=== PATIENT | male | born 1970 | race Caucasian/White ===

== ENCOUNTER 2016-05-10 15:13 | Inpatient (IN) | payer MEDICARE, MEDICAID ==
[2016-05-10] VITALS (8 sets, daily range): BP systolic 133–177; BP diastolic 87–101; PULSE 102–120; RESP 17–22; O2SAT 98–100
[~2016-05-10] VITALS: Ht 179.1 cm; Wt 113.0 kg
[~2016-05-10 15:13] MED LIST: BENZ0.5T3 PO; BUPR150T12 PO; DOXY100T2 PO; FLUO10CA20 PO; FLUO20CA25 PO; GABA-502 PO; LORA1TAB PO; LURA40TA3 PO; TRAZ-118 PO; ZLP10T PO
[2016-05-10] MEDS ORDERED: 0.9% Sodium Chloride 1,000 ML IV ONE (16:22)
[2016-05-10] MEDS ORDERED: Ondansetron 2 mg/mL 2 mL Inj IVPUSH ONE (16:25)
[2016-05-10] MEDS ORDERED: Thiamine Inj 100 MG, Folic Acid Inj 1 MG, Magnesium Sulfate 50% Inj 2 GM, Multivitamins... IV ONE ×15 (16:25→21:35)
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
[2016-05-10 16:40] LABS: BASOPHILS % (AUTO) 0 % (0-3); EOSINOPHILS % (AUTO) 0 % (0-5); MONOCYTES % (AUTO) 16.1 % (4-12); Mean Corpuscular Hemoglobin 31.2 pg (27.0-35.0); Mean Corpuscular Volume 91.4 fL (81-100); NEUTROPHILS % (AUTO) 75.9 % (40-74); Platelet Count 104 bil/L (150-400)
[2016-05-10 16:44] LABS: INR 1.07 ratio
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
[2016-05-10 17:13] LABS: Magnesium 1.2 mg/dL (1.6-2.6)
[2016-05-10] MEDS ORDERED: Magnesium Sulf 2 Gm/50mL Water 2 GM in IV Premix 1 EACH IV ONE (17:30)
--- NOTE | 2016-05-10 17:36 | ABG ---
DateTimeAnalyzed 17:30:00 -_ pH ____7.557 - 7.350 7.450 pCO2 ___27.1__ -mmHg 35.0 45.0 pO2 104 -mmHg 69.0 116 HCO3- ___24.0__ -mmol/L 22.0 26.0 ABE ____2.7__ -mmol/L -2.0 2.0 tHb ___11.4__ -g/dL O2Hb ___95.9__ -% COHb ____1.8__ -% MetHb ____0.9__ -% sO2 ___98.6__ -% 25.0 FIO2 ___21.0__ -% Drawn By NB - Date/Time Notified____ 17:35:00 -_ Notified By NB - Notified Whom ___OKELLY - B 756 -mmHg tO2 ___15.5__ -Vol% Duarte test N/A -
[2016-05-10 18:15] LABS: APPEARANCE,URINE CLEAR (CLEAR,HAZY); COLOR,URINE YELLOW (YELLOW); OCCULT BLOOD,URINE NEGATIVE (NEGATIVE); UROBILINOGEN,URINE NORMAL (NORMAL)
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
[2016-05-10] MEDS: 0.9% Sodium Chloride 1,000 ML IV SCH ×3 (19:45→23:05)
[2016-05-10] MEDS ORDERED: Alum-Mag Hydrox-Simeth 30 mL Suspension PO PRN (21:35)
[2016-05-10] MEDS ORDERED: Polyethylene Glycol (PEG) 17 Gm Powder PO PRN (21:35)
[2016-05-10] MEDS ORDERED: Ondansetron 2 mg/mL 2 mL Inj IVPUSH PRN (21:35)
[2016-05-10] MEDS ORDERED: oxyCODONE-Acetamin 5-325 mg Tablet PO ONE (21:50)
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
[2016-05-11] VITALS (7 sets, daily range): BP systolic 120–130; BP diastolic 75–88; PULSE 77–99; RESP 16–20; O2SAT 97–99
[2016-05-11] MEDS: 0.9% Sodium Chloride 1,000 ML IV SCH ×3 (00:11→18:08)
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
--- NOTE | 2016-05-11 04:54 | NUR ---
CIWA: Pt has scored 14 throughout the night for CIWA protocol; Valium being administered. Pt c/o generalized pain, mostly in L knee, medication administered; effective. Denies SOB and chest pain. Pt slept off/on during the night, pleasant and cooperative with care.
--- NOTE | 2016-05-11 07:22 | NUR ---
Home Medications: Pt was not able to give complete home medication list; passed to dayshift to complete. Pt has not had any medications for several days.
[2016-05-11] MEDS: Multivit-Miner-Folic Acid-Iron Tablet PO SCH (08:16)
[2016-05-11] MEDS ORDERED: Influenza (Adult) Vaccine 0.5 mL Syringe IM ONE (08:30)
[2016-05-11] MEDS ORDERED: RISP4TAB2 PO (11:01)
[2016-05-11] MEDS ORDERED: CITA40TA PO (11:01)
--- NOTE | 2016-05-11 15:46 | NUR ---
Social Work-attempted assessment: Data:EMR reviewed. Pt is a 45 y/o male who was admitted on 05/10/16 for ETOH withdrawal per H&P. Pt's insurance is [facility] and PCP is Toan Liu MD. EMR reviewed. SW attempted to see pt, pt sleeping soundly. SW to follow up tomorrow to complete CD assessment and assessment. SW will continue to follow. Assessment:Pt who is independent at baseline. Plan:SW to follow up with CD assessment and assessment when appropriate. SW will continue to follow. JAYDON Cardenas
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
[2016-05-11] MEDS: buPROPion SR 150 mg ER12 Tablet PO SCH (18:07)
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
[2016-05-12] VITALS (8 sets, daily range): BP systolic 88–130; BP diastolic 53–82; PULSE 82–100; RESP 16–28; O2SAT 95–99
[2016-05-12] MEDS: 0.9% Sodium Chloride 1,000 ML IV SCH ×3 (03:48→23:22)
--- NOTE | 2016-05-12 05:58 | NUR ---
CIWA/Dressing CIWA , 11 and 14 , gave 10 Mg IV Diazepam x2 , Pain , gave 5 Mg Oxy x 2 , Insomnia , Trazodone 100 x1. Pt had dressing on rt buttocks saturated , removed dressing and re-dressed. slight confused but usually appropriate, , Room Air , NS @ 100, Tele SR 76
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
[2016-05-12 09:58] LABS: BASOPHILS % (AUTO) 0.3 % (0-3); EOSINOPHILS % (AUTO) 0.8 % (0-5); MONOCYTES % (AUTO) 13.2 % (4-12); Mean Corpuscular Hemoglobin 31.8 pg (27.0-35.0); Mean Corpuscular Volume 96.8 fL (81-100); NEUTROPHILS % (AUTO) 72.2 % (40-74); Platelet Count 106 bil/L (150-400)
[2016-05-12] MEDS: Lidocaine Topical 5% Patch TOPICAL SCH (09:59)
[2016-05-12] MEDS: Heparin 5,000 Unit/mL Inj SUBQ SCH ×2 (10:52→17:47)
[2016-05-12] MEDS: risperiDONE 2 mg Tablet PO SCH (10:53)
[2016-05-12] MEDS: buPROPion SR 150 mg ER12 Tablet PO SCH (10:54)
[2016-05-12] MEDS: Multivit-Miner-Folic Acid-Iron Tablet PO SCH (10:55)
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
--- NOTE | 2016-05-12 15:30 | NUR ---
Dressing Change Changed patients dressing on his Right leg and Right buttock. Applied layer of Silvadene to all open wounds, applied adaptic, kerlix, then wrapped with singh bandage from thigh to lower leg. Pt has 4 wounds on right leg ranging in different sizes. Wounds are pink with some serous drainage. Pt Right buttock was also changed with Silvadene, adaptic, abdominal pad, and taped. Wound is almost entire right buttock, pink with drainage. Pt tolerated procedure well. Continue to monitor and use CIWA protocol as needed. Dressings to be changed daily per wound team. Pt in bed, resting, with call light at bedside, low position.
--- NOTE | 2016-05-12 17:37 | NUR ---
Wound care Pt seen at bedside for wound care this AM, dressings removed at right leg and buttock. Residual blisters were evacuated of fluid with an 11 blade, pt unable to tolerate debridement of slough from wounds/burroughs today. Wounds are mostly superficial 2nd degree with a few areas at buttock and lateral leg that would be considered deep 2nd degree. Recommend Silvadene to all burroughs daily, cover with gauze and wrap, also recommend daily shower at dressing change so patient can scrub silvadene off prior to application of fresh. Will recheck on wound progress 05/14/16.
[2016-05-13] VITALS (8 sets, daily range): BP systolic 101–162; BP diastolic 65–89; PULSE 77–121; RESP 18–20; O2SAT 96–99
[2016-05-13] MEDS: Heparin 5,000 Unit/mL Inj SUBQ SCH ×4 (00:39→23:30)
--- NOTE | 2016-05-13 04:59 | NUR ---
DRESSING CHANGE TO RIGHT BUTTOCK Pts dressing to right buttock saturated. Bed pad and pajama bottoms changed. Old dressing to right buttock removed. Yellow drainage on old dressing. Wound lightly cleansed w/ saline, layer of Silvadene placed on wound, vaseline gauze, then ABD pad, secured w/ paper tape. Pt tolerated procedure fairly well. Continue to monitor.
--- NOTE | 2016-05-13 05:02 | NUR ---
CIWA/PT ACTIVITY Pt has scored 7-12 on CIWA scale. Pt has been given Valium 5mg IV x 2 during shift. Pt has tremors, intermittent nausea, restless at times, continues to have auditory hallucinations. Pt states by "having the TV on, it drowns out some of the hallucinations." Pt has been up a few times to BR and to reposition. Pt generally weak, pt is very unsteady on feet. SBA to 1 person assist w/ activity. Continue to monitor. Call light in reach. Bed alarm on. Intentional rounding.
[2016-05-13 06:06] LABS: BASOPHILS % (AUTO) 0.3 % (0-3); EOSINOPHILS % (AUTO) 0.5 % (0-5); MONOCYTES % (AUTO) 18.6 % (4-12); Mean Corpuscular Volume 99.3 fL (81-100); NEUTROPHILS % (AUTO) 58.7 % (40-74); Platelet Count 127 bil/L (150-400)
[2016-05-13] MEDS ORDERED: Potassium Chloride 20 mEq SR Tablet PO ONE (07:45)
[2016-05-13] MEDS: Lidocaine Topical 5% Patch TOPICAL SCH (08:30)
[2016-05-13] MEDS: Multivit-Miner-Folic Acid-Iron Tablet PO SCH (08:39)
[2016-05-13] MEDS: risperiDONE 2 mg Tablet PO SCH (08:41)
[2016-05-13] MEDS: buPROPion SR 150 mg ER12 Tablet PO SCH (08:42)
[2016-05-13] MEDS ORDERED: Calcium GLUCO 10% (Gm) 1 Gm/10 mL 50 mL Inj IV ONE (08:45)
[2016-05-13] MEDS: 0.9% Sodium Chloride 1,000 ML IV SCH ×2 (08:48→21:36)
[2016-05-13] MEDS ORDERED: Calcium GLUCOnate 10% 1 Gm/50 mL NS IV ONE ×2 (09:00)
[2016-05-13] MEDS ORDERED: Potassium Chloride 20 mEq SR Tablet PO SCH (12:00)
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
--- NOTE | 2016-05-13 16:07 | NUR ---
Evaluation completed. Please go to "Notes" then click on "Assessments and Notes" (bottom left corner of screen). Then select appropriate discipline tab on top of screen.
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
--- NOTE | 2016-05-13 19:14 | NUR ---
Skin Amado on leg and buttock Showered, dressed with silvadine, vasaline gauze, kerlix and abd on leg, with abd and tape on buttock Daily changes ordered for nursing by WC
[2016-05-14 00:50] VITALS: BP 140/91; PULSE 83; RESP 18; O2SAT 96
[2016-05-14 04:04] VITALS: BP 118/76; PULSE 113; RESP 20; O2SAT 96
[2016-05-14 06:03] LABS: BASOPHILS % (AUTO) 0.2 % (0-3); EOSINOPHILS % (AUTO) 0.5 % (0-5); MONOCYTES % (AUTO) 20.1 % (4-12); Mean Corpuscular Hemoglobin 31.2 pg (27.0-35.0); Mean Corpuscular Volume 97.5 fL (81-100); NEUTROPHILS % (AUTO) 61.4 % (40-74); Platelet Count 155 bil/L (150-400)
[2016-05-14 06:07] VITALS: PULSE 91
[2016-05-14] MEDS: 0.9% Sodium Chloride 1,000 ML IV SCH ×2 (07:58→17:33)
[2016-05-14 08:00] VITALS: PULSE 108
[2016-05-14] MEDS: Multivit-Miner-Folic Acid-Iron Tablet PO SCH (08:01)
[2016-05-14] MEDS: risperiDONE 2 mg Tablet PO SCH (08:01)
[2016-05-14] MEDS: buPROPion SR 150 mg ER12 Tablet PO SCH (08:01)
[2016-05-14] MEDS: Heparin 5,000 Unit/mL Inj SUBQ SCH ×3 (08:03→23:43)
[2016-05-14] MEDS: Lidocaine Topical 5% Patch TOPICAL SCH (08:06)
[2016-05-14] MEDS ORDERED: Potassium Chloride 20 mEq SR Tablet PO ONE ×2 (10:05→17:35)
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
[2016-05-14 10:46] VITALS: BP 116/74; PULSE 83; RESP 22; O2SAT 96
[2016-05-14 17:15] LABS: Magnesium 1.4 mg/dL (1.6-2.6)
[2016-05-14] MEDS ORDERED: Magnesium Sulf 4 Gm/100 mL H2O 4 GM in IV Premix 1 EACH IV ONE (17:35)
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
--- NOTE | 2016-05-14 19:09 | NUR ---
mentation Pt has been having visual and auditory hallucinations stating that his friend Herbert is in the room and talking to him through television remote/speaker. Pt stated that he has been seeing Herbert for a long time and it is not from ETOH withdrawals and are more so related to his schizophrenia. Hand tremors are not baseline for him. Pt has been impulsive and wanting to ambulate but is physically unable to. Pt has been cooperative with care and often needs redirection.
[2016-05-14 19:54] VITALS: BP 130/79; PULSE 79; RESP 20; O2SAT 96
[2016-05-15] VITALS (8 sets, daily range): BP systolic 122–137; BP diastolic 61–85; PULSE 62–97; RESP 20–22; O2SAT 90–97
--- NOTE | 2016-05-15 04:25 | NUR ---
CIWA / Wound Care Ongoing CIWA protocol with scores of 14 and 19 this shift, respectively; 10mg IVP Valium administered x2. Pt significantly tremulous and diaphoretic, mildly disoriented to place and time but able to converse coherently with staff and participate in care. Pt reports continual pain to RLE and L knee; 5mg oxycodone administered x1 this shift. Pt able to rest throughout shift. [place] with [place] [facility] [place] tolerates poorly d/t pain and weakness, but able to stand and pivot. R buttock dressing and R lateral leg dressing changed this shift. VSS. Tele SR 70s-80s.
[2016-05-15] MEDS: 0.9% Sodium Chloride 1,000 ML IV SCH ×2 (04:39→14:35)
[2016-05-15 05:50] LABS: BASOPHILS % (AUTO) 0.3 % (0-3); MONOCYTES % (AUTO) 16.2 % (4-12); Mean Corpuscular Volume 98.7 fL (81-100); NEUTROPHILS % (AUTO) 66.3 % (40-74); Platelet Count 198 bil/L (150-400)
[2016-05-15 06:12] LABS: Magnesium 1.9 mg/dL (1.6-2.6)
[2016-05-15] MEDS ORDERED: Magnesium Chloride SR 64 mg ER24 Tablet PO ONE (07:25)
[2016-05-15] MEDS: Lidocaine Topical 5% Patch TOPICAL SCH (08:30)
[2016-05-15] MEDS: Potassium Chloride 20 mEq SR Tablet PO SCH ×2 (09:39→19:54)
[2016-05-15] MEDS: Multivit-Miner-Folic Acid-Iron Tablet PO SCH (09:42)
[2016-05-15] MEDS: buPROPion SR 150 mg ER12 Tablet PO SCH (09:43)
[2016-05-15] MEDS: risperiDONE 2 mg Tablet PO SCH (09:43)
[2016-05-15] MEDS: Heparin 5,000 Unit/mL Inj SUBQ SCH ×2 (09:51→18:14)
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
[2016-05-15] MEDS ORDERED: Lactulose 20 Gm/30 mL 30 mL Syrup PO ONE (15:15)
[2016-05-16] VITALS (9 sets, daily range): BP systolic 117–152; BP diastolic 68–95; PULSE 74–105; RESP 20; O2SAT 94–98
[2016-05-16] MEDS: 0.9% Sodium Chloride 1,000 ML IV SCH ×3 (00:52→13:33)
[2016-05-16] MEDS: Heparin 5,000 Unit/mL Inj SUBQ SCH ×3 (01:08→17:04)
--- NOTE | 2016-05-16 02:49 | NUR ---
Ambulation / CIWA / Pain able to ambulate to bathroom 1-2pa, gait belt, fww. Balance deficit apparent and several times leaning over with no balance compensation from legs with knees locked. Strong decent to toilet and able to walk back to bed with more ease. Will pass on to dayshift to encourage ambulation. CIWA scores <10 as all auditory/visual hallucinations are baseline symptom of chronic schizophrenia. Pain always 10/10 before/after pain medication administration. FELDT score is 0/10 and behavior is quite calm and peaceful while eating/resting in bed.
[2016-05-16 06:07] LABS: BASOPHILS % (AUTO) 0.5 % (0-3); EOSINOPHILS % (AUTO) 1.2 % (0-5); MONOCYTES % (AUTO) 22.7 % (4-12); Mean Corpuscular Hemoglobin 32.5 pg (27.0-35.0); NEUTROPHILS % (AUTO) 54.2 % (40-74); Platelet Count 264 bil/L (150-400)
[2016-05-16] MEDS: Multivit-Miner-Folic Acid-Iron Tablet PO SCH (07:46)
[2016-05-16] MEDS: buPROPion SR 150 mg ER12 Tablet PO SCH (07:46)
[2016-05-16] MEDS: Potassium Chloride 20 mEq SR Tablet PO SCH (07:46)
[2016-05-16] MEDS: risperiDONE 2 mg Tablet PO SCH (07:46)
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
--- NOTE | 2016-05-16 09:09 | NUR ---
Social Work: Continued d/c planning Data: Pt is on day 6 of hospitalization. NAPRAPATH met with pt at bedside regarding d/c plan. NAPRAPATH asked if pt has talked with his parents about going to either of their homes at d/c. Pt states he has not. NAPRAPATH strongly encouraged pt to call both of his parents this morning and ask if they can be available to crop picker pt at d/c and if he can stay with them for a while. NAPRAPATH also stated that if staying with his parents at d/c are not an options that he needs to get creative and think outside of the box and call others that he may be able to stay with for a time. Pt states he will call them. NAPRAPATH will follow up with pt about plan either later today or tomorrow morning. Assessment: Pt who is independent at baseline, alcohol abuse. Plan: Pt will call parents to see if he can stay at either of their homes at d/c. NAPRAPATH will follow up with pt regarding plan and transportation at d/c. JAYDON Knott
--- NOTE | 2016-05-16 09:09 | NUR ---
[facility] signed Verbal consent to sign at 8:30am. JAYDON Knott
[2016-05-16] MEDS: Lidocaine Topical 5% Patch TOPICAL SCH (10:03)
--- NOTE | 2016-05-16 16:41 | NUR ---
Social Work: Continued d/c planning Data: PATIENT REGISTRATION SUPERVISOR met with pt again this afternoon to follow up with him if he called his parents. Pt states he has not because he does not know their phone numbers. PATIENT REGISTRATION SUPERVISOR asked how he plans to get ahold of them. Pt states that he does not think his dad will take him back but his mom might and that he could call his girlfriend to see if she will find his mom's phone number for him. PATIENT REGISTRATION SUPERVISOR asked if they could call his girlfriend together, pt agreeable. PATIENT REGISTRATION SUPERVISOR asked [facility] to call pt's girlfriends out of area phone number and forward it to pt's room. Pt answered the phone while PATIENT REGISTRATION SUPERVISOR was in the room. PATIENT REGISTRATION SUPERVISOR left and came back about 45 minutes later to follow up on what pt determined with his girlfriend. Pt still on the phone. PATIENT REGISTRATION SUPERVISOR will follow up 05/17 regarding pt's d/c plan. PATIENT REGISTRATION SUPERVISOR will continue to follow. Assessment: Pt who is independent at baseline. Plan: PATIENT REGISTRATION SUPERVISOR will follow up with pt regarding d/c plan and if his mother states she can take him at d/c. If this is not an option for pt, he will need to consider other options. PATIENT REGISTRATION SUPERVISOR will continue to follow. JAYDNO Knott
--- NOTE | 2016-05-16 18:19 | NUR ---
CIWA and Activity CIWA 6. Pt. has persistent auditory hallucination which he explained is chronic for him. He walked in the hallway with PT in the morning. He walked again in the hallway in the afternoon. He walked 150' with SBA, he used a FWW for balance and stability.
[2016-05-17] MEDS: Heparin 5,000 Unit/mL Inj SUBQ SCH ×2 (00:06→08:50)
[2016-05-17 01:29] VITALS: BP 145/88; PULSE 90; RESP 20; O2SAT 98
[2016-05-17 05:50] LABS: BASOPHILS % (AUTO) 0.4 % (0-3); EOSINOPHILS % (AUTO) 1.2 % (0-5); MONOCYTES % (AUTO) 24.9 % (4-12); Mean Corpuscular Hemoglobin 30.7 pg (27.0-35.0); NEUTROPHILS % (AUTO) 52.5 % (40-74); Platelet Count 342 bil/L (150-400)
[2016-05-17 06:16] VITALS: BP 139/95; PULSE 79; RESP 16; O2SAT 98
--- NOTE | 2016-05-17 06:37 | NUR ---
CIWA CIWA score remained under 5 for the evening. No complaints of discomfort or pain, no noted tremors or s/s of ETOH withdraw. Pt pleasant and cooperative with all cares. Left room with call light at bedside, will continue to monitor.
[2016-05-17] MEDS ORDERED: Potassium Chloride 20 mEq SR Tablet PO SCH (08:30)
[2016-05-17] MEDS: Multivit-Miner-Folic Acid-Iron Tablet PO SCH (08:49)
[2016-05-17] MEDS: Lidocaine Topical 5% Patch TOPICAL SCH (08:49)
[2016-05-17] MEDS: risperiDONE 2 mg Tablet PO SCH (08:49)
[2016-05-17] MEDS: buPROPion SR 150 mg ER12 Tablet PO SCH (08:49)
[2016-05-17 09:33] VITALS: BP 129/81; PULSE 76; RESP 17; O2SAT 97
[2016-05-17] MEDS ORDERED: OXYC5TAB72 PO (11:30)
[2016-05-17] MEDS ORDERED: SILV400C TOPICAL (11:30)
[2016-05-17] MEDS ORDERED: POTA20TA16 PO (11:38)
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
--- NOTE | 2016-05-17 13:01 | NUR ---
Social Work-discharge: Data& assessment:EMR Reviewed. Pt is on day 7 of hospitalization for etoh withdrawal. Pt is medically stable to discharge today. PT is currently recommending SNF, but pt ambulating 75 ft. SW followed up with pt at bedside, SW role explained. Pt declining SNF, states he had a good conversation with mom yesterday and is able to go home with her. Pt requested that SW call his mom Mary Beth [phone], SW attempted to reach her, phone number busy. Pt states he is feeling good today, plans on following up with with outpt CD and mental health resources that have been provided to pt. Pt's family to provide transport home today. No other discharge needs identified. All updated and agreeable to plan. Plan:Pt to discharge home with his mother today via POV. CD and mental health resources have been provided. No other discharge needs identified. All updated and agreeable to plan. JAYDON Cardenas
--- NOTE | 2016-05-17 13:22 | NUR ---
Discharge Patient discharge to home with all belongings at 1304. Explained to patient new medications (oxycodone, potassium chloride and silver sulfadiazine), when next medications are due and discharge instructions. Patient verbalized understanding. Dc'd IV intact. Dc'd telemetry. Vitals stable. Patient left floor via wheelchair accompanied by TAXI DRIVER SUPERVISOR with no signs of distress.
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
== END 2016-05-17 13:04 | disposition home or self-care (01) | DRG 897 ==
LOC: SED 15:13 → EDBD 15:13 → MPC 22:12
PROVIDERS: ADMIT Hospitalist; ATTEND Hospitalist
PROC: 4A033R1 Measurement of Arterial Saturation, Peripheral, Percutaneous Approach (ICD-10-PCS; principal; 2016-05-10)
DX: F10.239 Alcohol dependence with withdrawal, unspecified (principal); F20.0 Paranoid schizophrenia; T24.201A Burn of second degree of unspecified site of right lower limb, except ankle and foot, initial encounter; Z98.84 Bariatric surgery status; Z59.0 Homelessness; F32.9 Major depressive disorder, single episode, unspecified; E66.01 Morbid (severe) obesity due to excess calories; Z68.35 Body mass index [BMI] 35.0-35.9, adult; E83.42 Hypomagnesemia; E87.6 Hypokalemia

== ENCOUNTER 2016-07-11 09:26 | Emergency (ER) | payer MEDICARE, MEDICAID ==
[~2016-07-11] VITALS: Ht 177.8 cm; Wt 99.1 kg
[~2016-07-11 09:26] MED LIST changes: +CITA40TA PO; -DOXY100T2 PO; -LORA1TAB PO; +OXYC5TAB72 PO; +POTA20TA16 PO; +RISP4TAB2 PO; +SILV400C TOPICAL; -ZLP10T PO
[2016-07-11 09:36] VITALS: BP 148/76; PULSE 104; RESP 18; O2SAT 96
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
[2016-07-11] MEDS ORDERED: LORazepam 2 mg Tablet PO ONE (09:50)
[2016-07-11] MEDS ORDERED: 0.9% Sodium Chloride 1,000 ML IV ONE (09:50)
[2016-07-11 10:11] LABS: BASOPHILS % (AUTO) 0.3 % (0-3); EOSINOPHILS % (AUTO) 1.5 % (0-5); MONOCYTES % (AUTO) 14.7 % (4-12); Mean Corpuscular Hemoglobin 30.7 pg (27.0-35.0); Mean Corpuscular Volume 97.7 fL (81-100); NEUTROPHILS % (AUTO) 58.2 % (40-74); Platelet Count 219 bil/L (150-400)
[2016-07-11] MEDS ORDERED: LORA-303 PO (10:46)
[2016-07-11 11:24] VITALS: BP 144/75; PULSE 94; RESP 18; O2SAT 97
== END 2016-07-11 11:25 | disposition home or self-care (01) ==
LOC: SED 09:26
DX: R56.9 Unspecified convulsions (principal); F31.9 Bipolar disorder, unspecified; F20.9 Schizophrenia, unspecified; F17.200 Nicotine dependence, unspecified, uncomplicated

== ENCOUNTER 2016-09-28 14:02 | Emergency (ER) | payer MEDICARE ==
[~2016-09-28] VITALS: Ht 180.3 cm; Wt 109.1 kg
[2016-09-28 14:02] VITALS: BP 142/90; PULSE 135; RESP 16; O2SAT 96
[~2016-09-28 14:02] MED LIST changes: +LORA-303 PO
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
--- NOTE | 2016-09-28 15:46 | DRSVH ---
PROCEDURE: CT BRAIN WITHOUT CONTRAST ([id number]) INDICATIONS: intoxicated frontal abrasions, found down TECHNIQUE: Noncontrast 4.5 mm thick angled axial sections acquired from the foramen magnum to the vertex, with c oronal reformats. COMPARISON: [facility], CT, CT BRAIN WO CON, 05/10/2016, 18:40. FINDINGS: Image quality: Diagnostic. Brain: There is no acute intra-axial or extra-axial hemorrhage. No extra-axial fluid collection is i dentified. There is no midline shift or mass effect. The orbits are grossly unremarkable. No large areas of diffusely decreased attenuation are evident within the brain to suggest diffuse cer ebral edema. No definite parenchymal abnormality is identified. However, there are questionable are as of low-attenuation within the periventricular white matter. The ventricles and cortical sulci are more prominent than expected for the patient's age. Mild asymm etric prominence of the right lateral ventricle is unchanged. Bones: Calvarium and visualized facial bones are grossly intact. Moderate mucosal thickening of the left maxillary sinuses more prominent on the current exam. Otherwise, the imaged paranasal sinuses and mastoid air cells are clear. IMPRESSION: 1. Unchanged CT of the head. No acute intracranial hemorrhage. 2. Left maxillary sinus disease. Dictated by: Bola Arrieta M.D. on 09/28/2016 at 14:42 Approved by: Bola Arrieta M.D. on 09/28/2016 at 14:45
[2016-09-28 17:01] VITALS: BP 131/97; PULSE 133; RESP 18; O2SAT 96
[2016-09-28 17:19] VITALS: BP 131/97; PULSE 133; RESP 18; O2SAT 96
== END 2016-09-28 17:20 | disposition home or self-care (01) ==
LOC: SED 14:02
DX: F10.120 Alcohol abuse with intoxication, uncomplicated (principal); F32.9 Major depressive disorder, single episode, unspecified; F41.9 Anxiety disorder, unspecified; F20.9 Schizophrenia, unspecified; F43.10 Post-traumatic stress disorder, unspecified; F31.9 Bipolar disorder, unspecified; F17.200 Nicotine dependence, unspecified, uncomplicated

== ENCOUNTER 2016-09-29 15:31 | Emergency (ER) | payer MEDICARE ==
[~2016-09-29] VITALS: Ht 180.3 cm; Wt 97.3 kg
[2016-09-29 15:42] VITALS: BP 129/75; PULSE 108; RESP 16; O2SAT 100
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
[2016-09-29 16:27] LABS: APPEARANCE,URINE CLEAR (CLEAR,HAZY); COLOR,URINE YELLOW (YELLOW); PH,URINE 5.5 (5.0-8.0)
[2016-09-29 16:28] LABS: OCCULT BLOOD,URINE TRACE (NEGATIVE); UROBILINOGEN,URINE NORMAL (NORMAL)
[2016-09-29 20:12] VITALS: BP 98/48; PULSE 96; RESP 18; O2SAT 94
[2016-09-30 00:31] VITALS: BP 105/65; PULSE 118; RESP 18; O2SAT 98
[2016-09-30 05:09] VITALS: BP 11/59; PULSE 101; RESP 20; O2SAT 99
== END 2016-09-30 06:20 | disposition home or self-care (01) ==
LOC: SED 15:31 → EDBD 15:31 → SED 09-30 06:20
DX: F10.10 Alcohol abuse, uncomplicated (principal); F20.9 Schizophrenia, unspecified; F33.3 Major depressive disorder, recurrent, severe with psychotic symptoms; F43.0 Acute stress reaction; F43.10 Post-traumatic stress disorder, unspecified; F31.9 Bipolar disorder, unspecified; F41.9 Anxiety disorder, unspecified; F17.200 Nicotine dependence, unspecified, uncomplicated; Z59.0 Homelessness

== ENCOUNTER 2016-10-01 11:44 | Emergency (ER) | payer MEDICARE ==
[~2016-10-01] VITALS: Ht 175.3 cm; Wt 10.9 kg
[2016-10-01 11:44] VITALS: BP 142/68; PULSE 106; RESP 15; O2SAT 95
--- NOTE | 2016-10-01 12:47 | ED.REPORT ---
HPI-Overdose/Alcohol Toxicity Date of Service Oct 01, 2016 ED Provider: Chaparro Richmond MD Pt is a 45 year old male with a hx of alcoholism, PTSD and depression presenting to the ED via law enforcement for EtOH intoxication. The authorities were called to pick the pt up from [facility] for intoxication just prior to arrival. He denies any injuries, pain, or symptoms at this time. He states that he is interested in getting help to stop drinking alcohol. Pt currently takes Respirtone and trazodone. He denies any drug use or hx of withdrawal seizures. Nursing Notes Stated Complaint: ETOH Chief Complaint: Substance Abuse Nursing Notes Reviewed: Yes ([employer], [employer] not reconciled) Allergies: Coded Allergies: No Known Allergies (Verified , 10/01/16) Scheduled Bupropion ER (Bupropion ER) 150 Mg Tablet.er 150 MG PO DAILY Citalopram Hydrobromide (Celexa) 40 Mg Tablet 40 MG PO DAILY Fluoxetine (Fluoxetine) 10 Mg Capsule 10 MG PO DAILY Fluoxetine (Fluoxetine) 20 Mg Capsule 20 MG PO DAILY Lorazepam (Ativan) 1 Mg Tablet 1 MG PO DIRECTED 2mg q6hrs x 24hrs, then 1mg q6hrs x 24hrs, then 1mg q8hrs x 24hrs, then 1mg q12hrs x 24hrs, then 1mg Lurasidone (Latuda) 40 Mg Tablet 40 MG PO DAILY Risperidone (Risperidone) 4 Mg Tablet 4 MG PO DAILY Scheduled PRN Benztropine Mesylate (Benztropine Mesylate) 0.5 Mg Tablet 0.5-1 MG PO BID PRN PRN For Anxiety Gabapentin (Gabapentin) 300 Mg Capsule 300 MG PO TID PRN PRN For Pain Trazodone (Trazodone) 100 Mg Tablet 100 MG PO HS PRN PRN For Sleep oxyCODONE (oxyCODONE) 5 Mg Tablet 5 MG PO Q6H PRN PRN For Moderate Pain General Time Seen by Provider: 12:48 Chief Complaint Intoxicated, alcohol Hx Obtained From: Patient, Police Arrived By: Police Onset Occurred: Just prior to arrival Symptom Duration: Since onset Severity: Current: No pain currently Severity: Maximum: No pain Recent Healthcare: No recent hospitalization, Recent doctor visit Similar Sx Previous: Yes Past Medical History Past Medical History Notes: Multiple ED visits for ETOH Last admit 04/2016 Past Medical History Alcoholism Schizophrenia PTSD Depression Insomnia Anxiety Bipolar disorder Past Surgical History Gastric bypass Family History Noncontributory Smoking History Current Every Day Smoker Social History EtOH use to reduce auditory hallucinations. Drinks a 12 pack at once regularly. Does not have withdrawal related seizures Alcohol Use: >5 per day Drug Use: Denies drug use Other Social History: Smokeless tobacco, Poor social support, Visiting locally , Homeless Ambulatory Status Independent Review of Systems Review of Systems Note: Alcohol intoxication Constitutional: Denies: Weakness - generalized Cardiovascular: Denies: Chest pain GI: Denies: Abdominal pain Musculoskeletal: Denies: Back pain, Extremity pain Neurologic: Denies: Headache Complete sys rev & neg: except as marked. Physical Exam Initial Vital Signs Vital Signs (First) Date Time Temp Pulse Resp B/P Pulse Ox O2 Delivery O2 Flow Rate FiO2 10/01/16 11:44 36.7 106 15 142/68 95 Room Air Initial VS: Reviewed, Vital signs abnormal (HR 106) ENT: Mucous membranes moist, Conjunctiva normal, No scleral icterus Extremities: Vascular intact, Neuro intact, No swelling, No tenderness Skin: Warm, Dry, No cyanosis General/Constitutional: Awake, Alert Behavior: Positive: Appears intoxicated Appearance / Presentation: Positive: Hygiene poor Smells of EtOH. Respiratory / Chest: No respiratory distress Abdomen: Atraumatic, Soft, Non-tender Neurologic: Oriented X3, Speech NL, No motor deficits, No sensory deficits Psychiatric: Affect NL, Mood NL, Not suicidal Head / Eyes: Atraumatic, Normocephalic, PERRL, EOMI Healed abrasion right forehead Upper Extremity / MS: No edema Interpretation & Diagnostics Interpretation & Diagnostics: Breathalyzer: 0.399 Re-Eval/Medical Decision Med Decision/Clinical Course This is a 45-year-old male brought by EMS with concern for alcohol intoxication. Patient has a multitude a recent visits for alcohol intoxication as well, but has not been interested in crisis respite or additional detox. All aware of the patient's was acting intoxicated around [employer], someone called 911, and he was brought here. I can arouse him enough for him to tell me his been drinking alcohol, he denies any suicidal ideation, he denies any trauma or injury, denies any medication or coingestants-he also tells me is not interested in going to crisis respite. However he is heavily intoxicated, smells of alcohol, goes right back to sleep. He has no signs of acute trauma- there are some abrasions that appear old. His vitals are normal. His initial breathalyzer is close to 400. The patient is being observed as he metabolizes. He is being over to Dr. Yan at change of shift pending further metabolization and re-evaluation. At this stage he is presentation is strongly suggestive isolated alcohol intoxication. He has had recent laboratory studies. I am not finding indication at this time for additional laboratory testing or imaging. Source of Hx: Old records Re-Evaluation/Progress : Time of Eval: 13:59 Patient Status: Condition improved Re-Evaluation/Progress Note: Pt sleeping comfortably. Differential Diagnosis: Positive: Alcohol abuse, Intoxication, alcohol Counseled Regarding: Diagnosis, Lab results, Need for follow-up, When/why to return to ED Discharge & Departure Impression: Primary Impression: Alcohol intoxication Complication of substance-induced condition: uncomplicated Qualified Code: F10.120 - Alcohol abuse with intoxication, uncomplicated Disposition: Home Discharge Condition All VS Reviewed: Yes Condition: Improved Referrals: Juaquin Priest DO (PCP) Care Transferred to: Care transferred to Dr. Yan Care Transferred at: 15:00 Napoleonibe Attestation Portions of this note were transcribed by Alyssa Myrick. I, Dr. Richmond personally performed the history, physical exam and medical decision-making; I reviewed and confirmed the accuracy of the information in the transcribed note. Signed by: Katharine Jean Baptiste, 10/01/2016 at 1500. copies to: Juaquin Priest Matthew F MD Oct 01, 2016 12:47 ALYSSA MYRICK Oct 01, 2016 12:54
[2016-10-01 13:32] VITALS: BP 132/82; PULSE 119; RESP 16; O2SAT 95
[2016-10-01 19:47] VITALS: BP 136/80; PULSE 119; RESP 16; O2SAT 99
[2016-10-02] MEDS ORDERED: Ondansetron 8 mg ODT Tablet PO ONE (02:45)
[2016-10-02] MEDS ORDERED: risperiDONE 1 mg Tablet PO ONE (02:45)
[2016-10-02 05:51] VITALS: BP 146/77; PULSE 129; RESP 22; O2SAT 100
[2016-10-03] MEDS ORDERED: SLO64 PO (04:57)
== END 2016-10-02 05:37 | disposition home or self-care (01) ==
LOC: EDBD 11:44 → EDUNIT# 11:44 → SED 11:44
DX: F10.120 Alcohol abuse with intoxication, uncomplicated (principal); F43.10 Post-traumatic stress disorder, unspecified; F32.9 Major depressive disorder, single episode, unspecified; F20.9 Schizophrenia, unspecified; F41.9 Anxiety disorder, unspecified; F31.9 Bipolar disorder, unspecified; F17.200 Nicotine dependence, unspecified, uncomplicated; Z59.0 Homelessness

== ENCOUNTER 2016-10-02 20:13 | Emergency (ER) | payer MEDICARE ==
[~2016-10-02] VITALS: Ht 180.3 cm; Wt 107.3 kg
--- NOTE | 2016-10-02 20:13 | ED.REPORT ---
HPI-Overdose/Alcohol Toxicity Date of Service Oct 02, 2016 ED Provider: Nursing Notes Stated Complaint: INTOXICATED Allergies: Coded Allergies: No Known Allergies (Verified , 10/02/16) Scheduled Bupropion ER (Bupropion ER) 150 Mg Tablet.er 150 MG PO DAILY Citalopram Hydrobromide (Celexa) 40 Mg Tablet 40 MG PO DAILY Fluoxetine (Fluoxetine) 10 Mg Capsule 10 MG PO DAILY Fluoxetine (Fluoxetine) 20 Mg Capsule 20 MG PO DAILY Lorazepam (Ativan) 1 Mg Tablet 1 MG PO DIRECTED 2mg q6hrs x 24hrs, then 1mg q6hrs x 24hrs, then 1mg q8hrs x 24hrs, then 1mg q12hrs x 24hrs, then 1mg Lurasidone (Latuda) 40 Mg Tablet 40 MG PO DAILY Risperidone (Risperidone) 4 Mg Tablet 4 MG PO DAILY Scheduled PRN Benztropine Mesylate (Benztropine Mesylate) 0.5 Mg Tablet 0.5-1 MG PO BID PRN PRN For Anxiety Gabapentin (Gabapentin) 300 Mg Capsule 300 MG PO TID PRN PRN For Pain Trazodone (Trazodone) 100 Mg Tablet 100 MG PO HS PRN PRN For Sleep oxyCODONE (oxyCODONE) 5 Mg Tablet 5 MG PO Q6H PRN PRN For Moderate Pain General Time Seen by Provider: 20:13 Physical Exam Initial Vital Signs Vital Signs (First) Date Time Temp Pulse Resp B/P Pulse Ox O2 Delivery O2 Flow Rate FiO2 10/02/16 20:16 35.8 125 16 149/82 100 Room Air Nam Carey DO Oct 02, 2016 20:13
[2016-10-02 20:16] VITALS: BP 149/82; PULSE 125; RESP 16; O2SAT 100
[2016-10-02] MEDS ORDERED: risperiDONE 2 mg Tablet PO ONE (20:25)
--- NOTE | 2016-10-02 21:08 | ED.REPORT ---
HPI-General Illness Date of Service Oct 02, 2016 ED Provider: Dr. Byrne Pt is a 45 year old male with a history of schizophrenia, alcoholism, depression , and bipolar disorder who presents to the ED complaining of increased schizophrenia symptoms for the past 3 days. The pt was at [facility] last night for sobering. He was discharged early this morning, and was planning to take the bus to his mother's house on [place]. He was unable to catch the bus. He began drinking again, and had "3 beers" today. The pt is otherwise homeless, and reports that he has not been able to get his medication because the transit system does not run on weekends. He reported that he was hearing voices, and the voices were telling him to harm himself. He denies a suicidal plan. Nursing Notes Stated Complaint: INTOXICATED Chief Complaint: Substance Abuse Nursing Notes Reviewed: Yes Allergies: Coded Allergies: No Known Allergies (Verified , 10/02/16) Scheduled Bupropion ER (Bupropion ER) 150 Mg Tablet.er 150 MG PO DAILY Citalopram Hydrobromide (Celexa) 40 Mg Tablet 40 MG PO DAILY Fluoxetine (Fluoxetine) 10 Mg Capsule 10 MG PO DAILY Fluoxetine (Fluoxetine) 20 Mg Capsule 20 MG PO DAILY Lorazepam (Ativan) 1 Mg Tablet 1 MG PO DIRECTED 2mg q6hrs x 24hrs, then 1mg q6hrs x 24hrs, then 1mg q8hrs x 24hrs, then 1mg q12hrs x 24hrs, then 1mg Lurasidone (Latuda) 40 Mg Tablet 40 MG PO DAILY Magnesium Chloride (Slow-Mag) 64 Mg Tablet 64 MG PO BID Risperidone (Risperidone) 4 Mg Tablet 4 MG PO DAILY Scheduled PRN Benztropine Mesylate (Benztropine Mesylate) 0.5 Mg Tablet 0.5-1 MG PO BID PRN PRN For Anxiety Gabapentin (Gabapentin) 300 Mg Capsule 300 MG PO TID PRN PRN For Pain Trazodone (Trazodone) 100 Mg Tablet 100 MG PO HS PRN PRN For Sleep oxyCODONE (oxyCODONE) 5 Mg Tablet 5 MG PO Q6H PRN PRN For Moderate Pain General Time Seen by MD: 21:08 Chief Complaint Other (Schizophrenia) Hx Obtained From: Patient Arrived By: Ambulance Sudden in Onset?: No Onset Occurred: 3 days ago Symptom Duration: Since onset Severity: Current: No pain currently Severity: Maximum: No pain Recent Healthcare: Recent doctor visit Similar Sx Previous: Yes Past Medical History Past Medical History Notes: Multiple ED visits for ETOH Last admit 04/2016 Past Medical History Alcoholism Schizophrenia PTSD Depression Insomnia Anxiety Bipolar disorder Past Surgical History Gastric bypass Family History Noncontributory Smoking History Never Smoker Social History EtOH use to reduce auditory hallucinations. Drinks a 12 pack at once regularly. Does not have withdrawal related seizures Alcohol Use: >5 per day Drug Use: Denies drug use Other Social History: Smokeless tobacco, Poor social support, Visiting locally , Homeless Ambulatory Status Independent Review of Systems Full Review of Systems Respiratory: Denies: Non-productive cough, Shortness of breath Psychiatric: Reports: Hallucinations, auditory, Suicidal ideation Complete sys rev & neg: except as marked. Physical Exam Vital Signs Vital Signs Date Time Temp Pulse Resp B/P Pulse Ox O2 Delivery O2 Flow Rate FiO2 10/02/16 22:08 36.9 121 16 124/69 99 Room Air 10/02/16 20:16 35.8 125 16 149/82 100 Room Air Initial VS: Reviewed Head / Eyes: Atraumatic, Normocephalic, PERRL ENT: Mucous membranes moist, Conjunctiva normal, No scleral icterus Neck: Supple, Full range of motion Extremities: Vascular intact, Neuro intact Skin: Warm, Dry, No cyanosis Neurologic: Alert, Oriented, Nonfocal General/Constitutional: Awake, Alert, Cooperative, Not toxic appearing Clinically not intoxicated. Head / Eyes: Atraumatic, Normocephalic, PERRL, EOMI Making good eye contact. Respiratory / Chest: Atraumatic, Breath sounds NL, Breath sounds = bilat, No respiratory distress Psychiatric: Mood NL, Not homicidal Abnormal Mood/Affect: Positive: Anxious Abnormal Thinking / Perception: Positive: Hallucinations, auditory, Suicidal, no plan Not showing any obvious hallucinations or delusional thoughts Re-Eval/Medical Decision Med Decision/Clinical Course 45-year-old with chronic recurrent alcohol abuse, underlying schizophrenia, presents for the third night consecutively intoxicated and concerned for his safety on the street. He denies active suicidality. He has been uncooperative with efforts to get him to his mother's house and relative safety. He did not use the offered bus pass on Tuesday, but instead got intoxicated. He states the bus does not run Tuesday, although it does run a reduced schedule. He is actually fairly reasonable at this point, not clinically intoxicated, and has accepted his usual prescribed nighttime meds. He is discharged now with plan to go to the bus station and overnight there, and then obtain a ride home the [place] in the morning. Discharged in stable condition. Source of Hx: Old records Time of Eval: 21:37 Re-Evaluation/Progress Note: Pt rechecked. Informed pt of plan for discharge. Pt understands and agrees with plan for discharge. F/U instructions and RTER warnings given. All questions addressed. Counseled Regarding: Diagnosis, Need for follow-up, When/why to return to ED Discharge & Departure Primary Impression: Alcohol abuse Additional Impressions: Schizophrenia Schizophrenia type: unspecified Qualified Code: F20.9 - Schizophrenia, unspecified Suicidal ideations Disposition: Home Discharge Condition All VS Reviewed: Yes Condition: Stable Patient Instructions: Schizophrenia (ED) Additional Instructions: Resume your prescribed medications. They are ready for you at [facility]. Pick them up tomorrow and restart. Go to your mother's house as planned and follow up with your doctor. Return if you have any acute medical issues. Referrals: Juaquin Priest DO (PCP) [facility] Attestation Portions of this note were transcribed by Inge De Guzman. I, Dr. Byrne personally performed the history, physical exam and medical decision-making; I reviewed and confirmed the accuracy of the information in the transcribed note. Signed by: Katharine Barba, 10/02/16 and 21:45 copies to: Juaquin Priest Christopher W MD Oct 02, 2016 21:08 Inge Javier Oct 02, 2016 21:16
[2016-10-02 22:08] VITALS: BP 124/69; PULSE 121; RESP 16; O2SAT 99
[2016-10-03] MEDS ORDERED: SLO64 PO (04:57)
== END 2016-10-02 22:09 | disposition home or self-care (01) ==
LOC: SED 20:13 → EDBD 20:13 → SED 22:09
DX: F20.9 Schizophrenia, unspecified (principal); F10.129 Alcohol abuse with intoxication, unspecified; R45.851 Suicidal ideations; F41.8 Other specified anxiety disorders; F31.9 Bipolar disorder, unspecified; Z59.0 Homelessness

== ENCOUNTER 2016-10-02 23:13 | Emergency (ER) | payer MEDICARE ==
[~2016-10-02] VITALS: Ht 180.3 cm; Wt 107.3 kg
[~2016-10-02 23:13] MED LIST changes: -POTA20TA16 PO; -SILV400C TOPICAL
[2016-10-02 23:16] VITALS: BP 84/45; PULSE 120; RESP 18; O2SAT 97
[2016-10-02] MEDS ORDERED: 0.9% Sodium Chloride 1,000 ML IV ONE (23:32)
--- NOTE | 2016-10-02 23:34 | ED.REPORT ---
HPI-General Illness Date of Service Oct 02, 2016 ED Provider: James Byrne MD Pt is a 45 year old male with a history of depression, anxiety, schizophrenia, PTSD, bipolar disorder, and alcoholism who presents to the ED after having a syncopal episode in the waiting area of [facility] while waiting for a taxi to bus station. He denies chest pain, vomiting, nausea, and SOB. The pt c/o nonproductive cough. He was discharged from the ED early tonight complaining of increased hallucinations with his chronic schizophrenia, but improved after receiving his nighttime meds. Nursing Notes Stated Complaint: SYNCOPAL EPISODE Chief Complaint: General Complaint Nursing Notes Reviewed: Yes Allergies: Coded Allergies: No Known Allergies (Verified , 10/02/16) Scheduled Bupropion ER (Bupropion ER) 150 Mg Tablet.er 150 MG PO DAILY Citalopram Hydrobromide (Celexa) 40 Mg Tablet 40 MG PO DAILY Fluoxetine (Fluoxetine) 10 Mg Capsule 10 MG PO DAILY Fluoxetine (Fluoxetine) 20 Mg Capsule 20 MG PO DAILY Lorazepam (Ativan) 1 Mg Tablet 1 MG PO DIRECTED 2mg q6hrs x 24hrs, then 1mg q6hrs x 24hrs, then 1mg q8hrs x 24hrs, then 1mg q12hrs x 24hrs, then 1mg Lurasidone (Latuda) 40 Mg Tablet 40 MG PO DAILY Magnesium Chloride (Slow-Mag) 64 Mg Tablet 64 MG PO BID Risperidone (Risperidone) 4 Mg Tablet 4 MG PO DAILY Scheduled PRN Benztropine Mesylate (Benztropine Mesylate) 0.5 Mg Tablet 0.5-1 MG PO BID PRN PRN For Anxiety Gabapentin (Gabapentin) 300 Mg Capsule 300 MG PO TID PRN PRN For Pain Trazodone (Trazodone) 100 Mg Tablet 100 MG PO HS PRN PRN For Sleep oxyCODONE (oxyCODONE) 5 Mg Tablet 5 MG PO Q6H PRN PRN For Moderate Pain General Time Seen by MD: 23:32 Chief Complaint Other (Syncopal episode) Hx Obtained From: Patient Arrived By: Walk-in Sudden in Onset?: Yes Onset Occurred: Just prior to arrival Severity: Current: No pain currently Severity: Maximum: No pain Recent Healthcare: Recent doctor visit Similar Sx Previous: No Past Medical History Past Medical History Notes: Multiple ED visits for ETOH Last admit 04/2016 Past Medical History Alcoholism Schizophrenia PTSD Depression Insomnia Anxiety Bipolar disorder Past Surgical History Gastric bypass Family History Noncontributory Smoking History Never Smoker Social History EtOH use to reduce auditory hallucinations. Drinks a 12 pack at once regularly. Does not have withdrawal related seizures Alcohol Use: >5 per day Drug Use: Denies drug use Other Social History: Smokeless tobacco, Poor social support, Visiting locally , Homeless Ambulatory Status Independent Review of Systems Full Review of Systems Respiratory: Reports: Non-productive cough, Denies: Shortness of breath Cardiovascular: Denies: Chest pain GI: Denies: Nausea, Vomiting Physical Exam Vital Signs Vital Signs Date Time Temp Pulse Resp B/P Pulse Ox O2 Delivery O2 Flow Rate FiO2 10/03/16 03:03 113 18 101/55 96 Room Air 10/03/16 01:51 105 18 153/78 97 Room Air 10/02/16 23:16 36.6 120 18 84/45 97 Room Air Initial VS: Reviewed Head / Eyes: Atraumatic, Normocephalic, PERRL Neck: Supple, Full range of motion Respiratory: Breath sounds normal, Clear to auscultation, No respiratory distress Extremities: Vascular intact, Neuro intact Skin: Warm, Dry, No cyanosis Neurologic: Alert, Oriented, Nonfocal Psychiatric: Mood/affect normal, Behavior normal General/Constitutional: Awake, Alert, No acute distress, Cooperative Head / Eyes: PERRL, EOMI Abraision on right forehead and brow. ENT: Atraumatic, Airway patent, Pharynx NL Mucosae mildly dry Cardiovascular: Heart rate NL, Regular rhythm, Heart sounds NL Hypotensive Abdomen: Atraumatic, Soft Abdomen is slightly tender, but it is benign Upper Extremities Upper Extremity / MS: Inspection NL, Full range of motion, Neurologic intact, Vascular intact Lower Extremity / Pelvis / MS: Inspection NL, Full range of motion, Vascular intact, No ligamentous injury Interpretation & Diagnostics CT PULMONARY ANGIOGRAM CONCLUSION: 1. No evidence of pulmonary embolism or thoracic aortic dissection. Lungs are clear. 2. Mildly dilated gallbladder. No calcified stones or gross pericholecystic inflammation. Correlate with LFTs and consider ultrasound if indicated 3. Hepatic steatosis. Transmitted to the ED at 01:47 by Maximiliano Andrews M.D. Lab Results Interpretation Result Diagram: 10/02/16 2332 10/02/16 2332 Test 10/02/16 23:32 10/03/16 00:09 White Blood Count 6.7th/mm3 (3.8-10.1) Red Blood Count 3.73mil/mm3 (4.40-5.80) Hemoglobin 9.5g/dL (13.8-17.2) Hematocrit 30.5% (41.0-50.0) Mean Corpuscular Volume 81.8fL (81-100) Mean Corpuscular Hemoglobin 25.5pg (27.0-35.0) Mean Corpuscular Hemoglobin Concent 31.1% (32.0-37.0) Red Cell Distribution Width 14.9% (12.3-15.4) Platelet Count 185bil/L (150-400) Neutrophils (%) (Auto) 79.5% (40-74) Lymphocytes (%) (Auto) 12.1% (14-46) Monocytes (%) (Auto) 7.9% (4-12) Eosinophils (%) (Auto) 0.1% (0-5) Basophils (%) (Auto) 0.1% (0-3) Prothrombin Time 11.0sec (8.1-12.5) Prothromb Time International Ratio 1.03ratio D-Dimer 5.40mg/L FEU (<0.50) Sodium Level 138mEq/L (134-144) Potassium Level 3.0mEq/L (3.5-5.2) Chloride Level 95mEq/L (97-108) Carbon Dioxide Level 22mmol/L (18-29) Blood Urea Nitrogen 6mg/dL (6-24) Creatinine 0.65mg/dL (0.76-1.27) Estimat Glomerular Filtration Rate 141mL/min (>59) Glucose Level 142mg/dL (60-99) Calcium Level 7.7mg/dL (8.5-10.1) Magnesium Level 1.4mg/dL (1.6-2.6) Total Bilirubin 0.3mg/dL (0.0-1.2) Aspartate Amino Transf (AST/SGOT) 75U/L (0-50) Alanine Aminotransferase (ALT/SGPT) 37U/L (0-44) Alkaline Phosphatase 203U/L (25-150) Troponin T < 0.010ug/L (0.0-0.011) Total Protein 6.6g/dL (6.4-8.4) Albumin 4.0g/dL (3.4-5.0) Hold Moore Top Tube Received (Received) ECG Interpretation ECG Interpretation: Sinus tachycardia Low voltage, precordial leads Prolonged QT interval No significant change compared to 01/12/16 Time: 23:02 Interpreted by: ED physician CT Head Interpretation CONCLUSION: No acute intracranial hemorrhage or calvarial fracture. Transmissted to the ED at 00:51 by Jason Quinn M.D. Study: Head CT no contrast Interpretation / Wet Read by: Interpret - Radiologist CT C-Spine Interpretation CONCLUSION: No acute fracture or subluxation of the cervical spine. Transmitted to the ED at 01:30 by Shameka Quinn M.D. Interpretation / Wet Read by: Interpret - Radiologist Re-Eval/Medical Decision Med Decision/Clinical Course 45-year-old presents with a syncopal episode just after discharge. He has had multiple presentations here with schizophrenia symptoms, noncompliance with his medical regimen, and continued alcohol abuse. He was mildly hypotensive initially but improved with fluids. He was hypokalemic and hypomagnesemic, and these were supplemented. He is again discharged home for follow-up with his PCP, and for refill of his chronic meds. Source of Hx: Old records Time of Eval: 06:07 Re-Evaluation/Progress Note: Pt rechecked. Informed pt of plan for discharge. Pt understands and agrees with plan for discharge. F/U instructions and RTER warnings given. All questions addressed. Counseled Regarding: Diagnosis, Lab results, Need for follow-up, When/why to return to ED Discharge & Departure Shift Change Sign-Out Response to Therapy: Improved Primary Impression: Syncope Syncope type: unspecified Qualified Code: R55 - Syncope and collapse Additional Impressions: Alcohol intoxication Complication of substance-induced condition: uncomplicated Qualified Code: F10.120 - Alcohol abuse with intoxication, uncomplicated Schizophrenia Schizophrenia type: unspecified Qualified Code: F20.9 - Schizophrenia, unspecified Blunt head trauma Encounter type: initial encounter Qualified Code: S09.8XXA - Other specified injuries of head, initial encounter Disposition: Home Discharge Condition All VS Reviewed: Yes Condition: Stable Additional Instructions: Discontinue drinking. Follow-up with your doctor in the office. Go home to mother's residence as planned. Drink plenty of nonalcoholic fluids and stay well-hydrated. Return if any immediate issues. Referrals: Juaquin Priest DO (PCP) Scrib[facility]ie[facility] Attestation Portions of this note were transcribed by Inge De Guzman. I, Dr. Byrne personally performed the history, physical exam and medical decision-making; I reviewed and confirmed the accuracy of the information in the transcribed note. Signed by: Katharine Barba, 10/03/16 and 04:50 copies to: Juaquin Priest Christopher W MD Oct 02, 2016 23:34 Inge Javier Oct 03, 2016 00:17
[2016-10-03 00:05] LABS: BASOPHILS % (AUTO) 0.1 % (0-3); EOSINOPHILS % (AUTO) 0.1 % (0-5); MONOCYTES % (AUTO) 7.9 % (4-12); Mean Corpuscular Hemoglobin 25.5 pg (27.0-35.0); Mean Corpuscular Volume 81.8 fL (81-100); NEUTROPHILS % (AUTO) 79.5 % (40-74); Platelet Count 185 bil/L (150-400)
[2016-10-03 00:29] LABS: INR 1.03 ratio
[2016-10-03 00:37] LABS: D-Dimer 5.4 mg/L FEU (<0.50)
[2016-10-03 00:52] LABS: Magnesium 1.4 mg/dL (1.6-2.6); TROPONIN T < 0.010 ug/L (0.0-0.011)
[2016-10-03 01:51] VITALS: BP 153/78; PULSE 105; RESP 18; O2SAT 97
[2016-10-03 03:03] VITALS: BP 101/55; PULSE 113; RESP 18; O2SAT 96
[2016-10-03] MEDS ORDERED: Magnesium Sulf 4 Gm/100 mL H2O 4 GM in IV Premix 1 EACH IV ONE (04:40)
[2016-10-03] MEDS ORDERED: Potassium Chloride 20 mEq SR Tablet PO ONE (04:40)
[2016-10-03] MEDS ORDERED: SLO64 PO (04:57)
[2016-10-03 06:55] VITALS: BP 146/81; PULSE 104; RESP 16; O2SAT 94
--- NOTE | 2016-10-03 08:30 | DRSVH ---
PROCEDURE: CT BRAIN WITHOUT CONTRAST ([id number]) INDICATIONS: fall TECHNIQUE: Noncontrast 4.5 mm thick angled axial sections acquired from the foramen magnum to the vertex, with c oronal reformats. COMPARISON: [facility], CT, CT BRAIN WO CON, 09/28/2016, 15:36. FINDINGS: Image quality: Excellent. CSF spaces: Basal cisterns are patent. No extra-axial fluid collections. Ventricles are normal in size and shape. Brain: No intracranial hemorrhage, mass, or mass effect. Christianson-white matter interface is preserved. Skull and face: Calvarium and visualized facial bones are intact, without suspicious lesions. Sinuses: Visualized sinuses redemonstrate severe thecal thickening within the left maxillary sinus. Remaining paranasal sinuses and mastoid air cells are clear. IMPRESSION: 1. No acute intracranial abnormalities. 2. Left maxillary sinus mucosal disease redemonstrated. Dictated by: Abdirahman Alejandre M.D. on 10/03/2016 at 8:21 Approved by: Abdirahman Alejandre M.D. on 10/03/2016 at 8:23
--- NOTE | 2016-10-03 08:31 | DRSVH ---
PROCEDURE: CT CERVICAL SPINE WITHOUT CONTRAST ([id number]) INDICATIONS: fall TECHNIQUE: Noncontrast 3 mm thick sections acquired from the skull base to the T4 level. Sagittal and coronal r eformats were then constructed. For radiation dose reduction, the following was used: automated exp osure control, adjustment of mA and/or kV according to patient size. COMPARISON: [facility], CT, CT CERVICAL SPINE WO CON, 12/17/2014, 0:18. FINDINGS: Image quality: There is slight motion artifact. Bones: No fractures or dislocations. There is straightening of the cervical lordosis redemonstrated . Visualized superior ribs are intact. Soft tissues: Prevertebral soft tissues are normal in thickness. No paravertebral hematomas. No ap ical pneumothoraces. IMPRESSION: 1. No fracture or subluxation. Dictated by: Abdirahman Alejandre M.D. on 10/03/2016 at 8:23 Approved by: Abdirahman Alejandre M.D. on 10/03/2016 at 8:24
--- NOTE | 2016-10-03 08:37 | DRSVH ---
PROCEDURE: CT ANGIO CHEST PULMONARY EMBOLISM ([id number]) INDICATIONS: syncope, elevated d dimer TECHNIQUE: After the administration of intravenous contrast, 2 mm thick sections acquired from the pulmonary api ester to the posterior costophrenic angles. 3-dimensional maximum intensity projection (MIP) coronal a nd sagittal reformats were then acquired through the thorax. For radiation dose reduction, the follo wing was used: automated exposure control, adjustment of mA and/or kV according to patient size. COMPARISON: None. FINDINGS: Image quality: There is mild motion artifact. Pulmonary arteries: Pulmonary arteries are normal in size, and demonstrate no intraluminal filling d efects to suggest central pulmonary embolism. Evaluation of distal subsegmental branches is limited due to mild motion artifact. Lungs and pleura: There is mild motion artifact slightly limiting evaluation. There is mild depende nt atelectasis bilaterally. No pleural effusions or pneumothorax. Central and peripheral airways ar e patent. Mediastinum: Heart size is normal, without pericardial effusion. No mediastinal or hilar adenopathy . Thoracic aorta is normal in caliber and enhancement without intimal flap to suggest dissection to the level of the superior mesenteric artery origin. There is a small hiatal hernia with mild fluid d istention of the mid to distal esophagus. Bones and chest wall: No suspicious bony lesions. Ribs and thoracic spine appear intact throughout. The No axillary or supraclavicular adenopathy. Abdomen: Visualized upper abdomen demonstrates distention of the visualized gallbladder without calc ified gallstones or wall thickening identified. There is diffuse hypoattenuation of the liver consis tent with fatty infiltration. There is mild fatty atrophy of the pancreas. Postsurgical changes are demonstrated along the stomach compatible with gastric bypass. IMPRESSION: 1. No evidence of central pulmonary embolism. Evaluation of distal subsegmental branches is slightl y limited by motion artifact. 2. No evidence of aortic dissection within the thoracic aorta. 3. Distended gallbladder within the upper abdomen without calcified gallstones or wall thickening id entified. If there is clinical suspicion for cholecystitis, recommend further evaluation with ultras ound. 4. Small hiatal hernia with mild fluid distention in the mid to distal esophagus. Dictated by: Abdirahman Alejandre M.D. on 10/03/2016 at 8:24 Approved by: Abdirahman Alejandre M.D. on 10/03/2016 at 8:30
--- NOTE | 2016-10-03 12:02 | DRSVH ---
PROCEDURE: X-RAY CHEST ONE VIEW, PORTABLE ([id number]) INDICATIONS: syncope TECHNIQUE: One view of the chest was acquired. COMPARISON: [facility], CR, XR CHEST 1VW (PORTABLE), 05/10/2016, 16:31. FINDINGS: Surgical changes and devices: None. Lungs and pleura: No pleural effusions or pneumothorax. Lungs are clear. Mediastinum: Mediastinal contours appear normal. Heart size is normal. Bones and chest wall: No suspicious bony lesions. Overlying soft tissues appear unremarkable. IMPRESSION: 1. No acute cardiopulmonary disease. Dictated by: Abdirahman Alejandre M.D. on 10/03/2016 at 11:54 Approved by: Abdirahman Alejandre M.D. on 10/03/2016 at 11:54
== END 2016-10-03 06:57 | disposition home or self-care (01) ==
LOC: SED 23:13
DX: R55 Syncope and collapse (principal); S00.81XA Abrasion of other part of head, initial encounter; S00.211A Abrasion of right eyelid and periocular area, initial encounter; X58.XXXA Exposure to other specified factors, initial encounter; Y93.89 Activity, other specified; Y92.238 Other place in hospital as the place of occurrence of the external cause; Y99.8 Other external cause status; F20.5 Residual schizophrenia; F10.120 Alcohol abuse with intoxication, uncomplicated; R05 Cough; F41.8 Other specified anxiety disorders; F31.9 Bipolar disorder, unspecified; Z59.0 Homelessness
CPT/HCPCS: 36415; 70450; 71010; 71275; 72125; 80053; 83735; 84484; 85025; 85378; 85610; 93005; 96361; 96365; 96366; 99285; J3475; J7030; Q9967